=== PATIENT | female | born 1990 | race Caucasian/White ===

== ENCOUNTER 2016-08-19 17:10 | Emergency (ER) | payer MEDICARE | END 2016-08-19 18:45 | disposition left against medical advice (07) | LOC: ER1 17:10 | DX: Z53.21 Procedure and treatment not carried out due to patient leaving prior to being seen by health care provider (principal) ==

== ENCOUNTER 2016-10-17 18:02 | Emergency (ER) | payer MEDICARE | END 2016-10-17 19:40 | disposition home or self-care (01) | LOC: ER1 18:02 | DX: O99.89 Other specified diseases and conditions complicating pregnancy, childbirth and the puerperium (principal); K40.90 Unilateral inguinal hernia, without obstruction or gangrene, not specified as recurrent; Z3A.25 25 weeks gestation of pregnancy; Z91.040 Latex allergy status | CPT/HCPCS: 99283 ==

== ENCOUNTER 2016-11-10 16:48 | Observation (INO) | payer MEDICARE ==
[~2016-11-10] VITALS: Ht 162.6 cm; Wt 76.2 kg
[2016-11-10 17:27] LABS: RED BLOOD COUNT 4.05 M/UL (4.00-5.10); WHITE BLOOD COUNT 8.8 K/UL (4.5-11.0)
== END 2016-11-11 14:12 | disposition home or self-care (01) ==
LOC: OB 16:48 → GENOP 16:48 → OB 20:30 → GENOP 20:31 → OB 11-11 14:12
PROVIDERS: Obstetrics & Gynecology; ADMIT Obstetrics & Gynecology
DX: O47.03 False labor before 37 completed weeks of gestation, third trimester (principal); O46.93 Antepartum hemorrhage, unspecified, third trimester; Z3A.28 28 weeks gestation of pregnancy; Z91.041 Radiographic dye allergy status; Z85.828 Personal history of other malignant neoplasm of skin; Z87.440 Personal history of urinary (tract) infections; Z90.89 Acquired absence of other organs
CPT/HCPCS: 36415; 85025; 96360; 96361; 96372; G0378; J0702; J3105; J7120

== ENCOUNTER 2020-08-29 20:24 | Outpatient (CLI) | payer OTHER ==
[~2020-08-29 20:24] MED LIST: AMOXICILLIN500 MG PO; LODINE CAP 300300 MG PO; PENVEE K 500 M500 MG PO; TAMIFLU75 MG PO
== END 2020-08-30 11:15 | disposition home or self-care (01) ==
LOC: GENOP 20:24
DX: O26.893 Other specified pregnancy related conditions, third trimester (principal); R10.9 Unspecified abdominal pain; Z3A.35 35 weeks gestation of pregnancy
CPT/HCPCS: 81001; 83518; 96360; 96372; 96375; J0702; J3105; J7120

== ENCOUNTER 2020-09-16 15:24 | Outpatient (CLI) | payer OTHER ==
[2020-09-16 16:53] LABS: HEMOGLOBIN 11.1 gm/dl (12.3-15.3); RED BLOOD COUNT 3.73 M/UL (4.00-5.10); WHITE BLOOD COUNT 8.9 K/UL (4.5-11.0)
== END 2020-09-16 18:28 | disposition home or self-care (01) ==
LOC: GENOP 15:24
PROVIDERS: Obstetrics & Gynecology
DX: Z53.8 Procedure and treatment not carried out for other reasons (principal)
CPT/HCPCS: 36415; 81001; 85025; G0463

== ENCOUNTER 2020-09-19 05:16 | Inpatient (IN) | payer OTHER ==
[~2020-09-19] VITALS: Ht 162.6 cm; Wt 84.4 kg
[2020-09-19] MEDS ORDERED: PRENATAL VITAM1 EAC3 PO (07:11)
[2020-09-19 07:44] LABS: BUN/CREATININE RATIO 21 (0-10)
[2020-09-19] MEDS ORDERED: DOCUSATE SODIU100 MG PO (19:53)
[2020-09-19] MEDS ORDERED: HYDROCODON-ACE1 EAC4 PO (19:53)
[2020-09-19] MEDS ORDERED: IBUPROFEN600 MG PO (19:53)
== END 2020-09-20 16:13 | disposition home or self-care (01) | DRG 788 ==
LOC: OB 05:16
PROVIDERS: ADMIT Obstetrics & Gynecology
PROC: 10D00Z1 Extraction of Products of Conception, Low, Open Approach (ICD-10-PCS; principal; 2020-09-19 07:30)
DX: O34.211 Maternal care for low transverse scar from previous cesarean delivery (principal); Z3A.38 38 weeks gestation of pregnancy; Z37.0 Single live birth; O26.893 Other specified pregnancy related conditions, third trimester; Z83.3 Family history of diabetes mellitus; Z80.8 Family history of malignant neoplasm of other organs or systems; Z82.49 Family history of ischemic heart disease and other diseases of the circulatory system; Z83.2 Family history of diseases of the blood and blood-forming organs and certain disorders involving the immune mechanism; Z87.891 Personal history of nicotine dependence; Z88.2 Allergy status to sulfonamides; Z91.040 Latex allergy status; O77.0 Labor and delivery complicated by meconium in amniotic fluid
CPT/HCPCS: 36415; 80048; 81001; 82800; 84450; 84460; 85014; 85018; 85025; 86850; 86900; 86901; 90715; C9113; G0463; J1170; J1885; J2274; J2405; J2590; J3010; J7120; U0003

== ENCOUNTER 2020-09-24 16:28 | Emergency (ER) | payer OTHER ==
[~2020-09-24 16:28] MED LIST changes: +DOCUSATE SODIU100 MG PO; +HYDROCODON-ACE1 EAC4 PO; +IBUPROFEN600 MG PO; +PRENATAL VITAM1 EAC3 PO
[2020-09-24 23:24] LABS: HEMOGLOBIN 11.1 gm/dl (12.3-15.3); RED BLOOD COUNT 3.74 M/UL (4.00-5.10); WHITE BLOOD COUNT 6.3 K/UL (4.5-11.0)
[2020-09-24 23:53] LABS: BUN/CREATININE RATIO 34 (0-10)
[2020-09-25] MEDS ORDERED: ONDANSETRON ODT4 MG SL (02:55)
[2020-09-25] MEDS ORDERED: XARELTO15 MG PO (02:55)
[2020-09-25] MEDS ORDERED: PROTONIX40 MG PO (02:55)
[2020-09-25] MEDS ORDERED: CEFUROXIME500 MG PO (02:55)
== END 2020-09-25 03:34 | disposition home or self-care (01) ==
LOC: ER1 16:28
PROVIDERS: Physician Assistant
DX: R07.2 Precordial pain (principal); N39.0 Urinary tract infection, site not specified; Z91.040 Latex allergy status; Z79.899 Other long term (current) drug therapy
CPT/HCPCS: 71045; 80053; 81001; 82550; 82553; 83690; 83874; 84484; 85025; 85379; 93005; 96374; 99285; C9113; Q9967

== ENCOUNTER 2020-12-18 14:13 | Emergency (ER) | payer OTHER ==
[~2020-12-18 14:13] MED LIST changes: +CEFUROXIME500 MG PO; +ONDANSETRON ODT4 MG SL; +PROTONIX40 MG PO; +XARELTO15 MG PO
== END 2020-12-18 22:10 | disposition home or self-care (01) ==
LOC: ER1 14:13
DX: T14.8XXA Other injury of unspecified body region, initial encounter (principal); R07.9 Chest pain, unspecified; Y04.2XXA Assault by strike against or bumped into by another person, initial encounter; Z90.89 Acquired absence of other organs
CPT/HCPCS: 71046; 84703; 99283